=== PATIENT | female | born 1960 | race American Indian/Alaskan Native ===

== ENCOUNTER 2017-08-02 16:21 | Emergency (ER) | payer OTHER ==
[2017-08-02 16:48] VITALS: BP 154/93
[2017-08-02 17:11] LABS: Basophils % (Auto) 0.4 % (0.0-1.8); Eosinophils % (Auto) 0.9 % (0.0-4.3); Hematocrit 37.1 % (30.3-42.9); Hemoglobin 12.7 gm/dl (10.1-14.3); Mean Corpuscular HGB Conc 34 % (30-34); Mean Corpuscular Hemoglobin 31 pg (28-32); Mean Corpuscular Volume 89 fl (79-97); Platelet Count 193 K/mm3 (140-440); Red Blood Count 4.17 M/mm3 (3.65-5.03); White Blood Count 6.9 K/mm3 (4.5-11.0)
[2017-08-02 17:39] LABS: Anion Gap 21 mmol/L; BUN/Creatinine Ratio 11; Blood Urea Nitrogen 11 mg/dL (7-17); Calcium 9.7 mg/dL (8.4-10.2); Carbon Dioxide 23 mmol/L (22-30); Chloride 102.2 mmol/L (98-107); Glucose 114 mg/dL (65-100); Potassium 3.7 mmol/L (3.6-5.0); Sodium 142 mmol/L (137-145)
== END 2017-08-02 20:02 | disposition left against medical advice (07) ==
LOC: ED 16:21
DX: R07.9 Chest pain, unspecified (principal); M54.9 Dorsalgia, unspecified; Z53.21 Procedure and treatment not carried out due to patient leaving prior to being seen by health care provider
CPT/HCPCS: 36415; 80048; 84484; 85025; 93005; 93010

== ENCOUNTER 2017-10-27 23:14 | Emergency (ER) | payer OTHER ==
[2017-10-28] MEDS ORDERED: ULTRAM PO ONE (03:02)
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
[2017-10-28 05:29] VITALS: BP 141/82
== END 2017-10-28 05:29 | disposition home or self-care (01) ==
LOC: ED 23:14
DX: S09.8XXA Other specified injuries of head, initial encounter (principal); S13.8XXA Sprain of joints and ligaments of other parts of neck, initial encounter; I10 Essential (primary) hypertension; V49.49XA Driver injured in collision with other motor vehicles in traffic accident, initial encounter; Y93.89 Activity, other specified; Y92.89 Other specified places as the place of occurrence of the external cause; Y99.8 Other external cause status
CPT/HCPCS: 70450; 72125

== ENCOUNTER 2018-01-04 07:53 | Emergency (ER) | payer OTHER ==
[2018-01-04 08:28] VITALS: BP 162/100
[2018-01-04] MEDS ORDERED: TORADOL IM ONE (09:58)
[2018-01-04] MEDS ORDERED: FLEXERIL PO ONE (09:58)
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
== END 2018-01-04 10:32 | disposition home or self-care (01) ==
LOC: ED 07:53
DX: M54.5 Low back pain (principal); G89.29 Other chronic pain; I10 Essential (primary) hypertension; Z98.51 Tubal ligation status; Z88.6 Allergy status to analgesic agent
CPT/HCPCS: 96372; 99282; J1885

== ENCOUNTER 2018-01-24 02:01 | Emergency (ER) | payer OTHER ==
--- NOTE | 2018-01-24 03:05 | XRay Report ---
FINAL REPORT EXAM: XR ANKLE 2V LT HISTORY: s/p fall swollen and pain COMPARISON: None available. FINDINGS: Two views of the left ankle obtained. Bony structures are intact. Ankle mortise is preserved. No acute fracture dislocation. IMPRESSION: No acute bony abnormality.
--- NOTE | 2018-01-24 03:06 | XRay Report ---
FINAL REPORT EXAM: XR FOOT 2V LT HISTORY: s/p fall swollen and pain COMPARISON: Left ankle from the same date. FINDINGS: Two views of the left foot obtained. There is a well corticated bony fragment seen on the lateral view measuring 6 x 2 millimeters likely reflecting and ossicle adjacent to the tarsal bones. Bony structures are intact. Joint spaces are preserved. No acute fracture dislocation. IMPRESSION: No acute bony abnormality.
[2018-01-24] MEDS ORDERED: TYLENOL PO ONE (04:15)
[2018-01-24 04:16] VITALS: BP 155/84
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
[2018-01-24] MEDS ORDERED: BOOSTRIX IM ONE (04:28)
== END 2018-01-24 05:26 | disposition home or self-care (01) ==
LOC: ED 02:01
DX: S93.402A Sprain of unspecified ligament of left ankle, initial encounter (principal); I10 Essential (primary) hypertension; Z98.51 Tubal ligation status; W01.198A Fall on same level from slipping, tripping and stumbling with subsequent striking against other object, initial encounter; Y93.89 Activity, other specified; Y92.89 Other specified places as the place of occurrence of the external cause; Y99.8 Other external cause status
CPT/HCPCS: 90471; 90715